=== PATIENT | male | born 1990 | race Caucasian/White ===

== ENCOUNTER 2021-08-23 20:29 | Emergency (ER) | payer OTHER ==
[~2021-08-23] VITALS: Ht 180.3 cm; Wt 74.8 kg
[2021-08-23 20:31] VITALS: BP 131/77
[2021-08-23] MEDS ORDERED: PRILOSEC OTC20 MG (21:07)
[2021-08-23] MEDS ORDERED: VISTARIL 25 MG25 M1 PO (21:42)
== END 2021-08-23 22:07 | disposition home or self-care (01) ==
LOC: ER 20:29
PROVIDERS: Physician Assistant
DX: F41.0 Panic disorder [episodic paroxysmal anxiety] (principal); Z20.822 Contact with and (suspected) exposure to COVID-19; F41.9 Anxiety disorder, unspecified; F12.90 Cannabis use, unspecified, uncomplicated; Z79.899 Other long term (current) drug therapy